=== PATIENT | male | born 1955 | race Caucasian/White ===

== ENCOUNTER 2020-04-14 13:05 | Outpatient (CLI) | payer BC ==
[2020-04-14 14:06] LABS: BASOPHILS # (AUTO) 0.1 X10'3 (0-0.2); BASOPHILS % (AUTO) 0.9 % (0-1); EOSINOPHILS # (AUTO) 0.3 X10'3 (0-0.9); EOSINOPHILS % (AUTO) 4.3 % (0-6); HEMATOCRIT 51.6 % (42.0-52.0); HEMOGLOBIN 17.7 g/dl (14.0-17.9); LYMPHOCYTES # (AUTO) 1.9 X10'3 (1.1-4.8); LYMPHOCYTES % (AUTO) 28.3 % (21-51); MEAN CORPUSCULAR HEMOGLOBIN 33.1 PG (27.0-31.0); MEAN CORPUSCULAR HGB CONC 34.3 g/dL (33.0-36.5); MEAN CORPUSCULAR VOLUME 96.4 FL (78-98); MONOCYTES # (AUTO) 1.1 X10'3 (0-0.9); MONOCYTES % (AUTO) 16.2 % (2-12); NEUTROPHILS # (AUTO) 3.4 X10'3 (1.8-7.7); NEUTROPHILS % (AUTO) 50.3 % (42-75); PLATELET COUNT 181 X10'3 (140-440); RED BLOOD COUNT 5.36 X10'6 (4.70-6.10); RED CELL DISTRIBUTION WIDTH 14.2 % (11.5-14.5); WHITE BLOOD COUNT 6.7 X10'3 (4.5-11.0)
[2020-04-14 14:18] LABS: ALBUMIN 4.1 G/DL (3.4-5.0); ANION GAP 6 (8-16); BLOOD UREA NITROGEN 17 MG/DL (7-18); BUN/CREATININE RATIO 15.6 (5.4-32.0); CALCIUM 9.6 MG/DL (8.5-10.1); CHLORIDE 100 MMOL/L (99-107); CREATININE 1.09 MG/DL (0.60-1.10); GLUCOSE 104 MG/DL (70-104); POTASSIUM 4.2 MMOL/L (3.5-5.1); SODIUM 137 MMOL/L (135-145); TOTAL CARBON DIOXIDE 30.6 MMOL/L (24-32); eGFR 67 ML/MIN
[2020-04-14 14:43] LABS: TOTAL CELLS COUNTED 100
[2020-04-14 14:44] LABS: PLATELET ESTIMATE NORMAL
[2020-04-15] MEDS ORDERED: DIGO-21 PO (10:18)
[2020-04-15] MEDS ORDERED: FURO20TA4 PO (10:18)
[2020-04-15] MEDS ORDERED: LISI-604 PO (10:18)
[2020-04-15] MEDS ORDERED: APIX5TAB3 PO (10:18)
[2020-04-15] MEDS ORDERED: AMIO200T27 PO (10:18)
[2020-04-15] MEDS ORDERED: METO50TA17 PO (10:18)
[2020-04-15] MEDS ORDERED: POTA-82 PO (10:18)
== END 2020-04-14 23:59 | disposition home or self-care (01) ==
LOC: LAB 13:05
DX: I48.4 Atypical atrial flutter (principal); R79.89 Other specified abnormal findings of blood chemistry; R68.89 Other general symptoms and signs
CPT/HCPCS: 80048; 85007; 85025

== ENCOUNTER 2020-04-15 09:19 | Day surgery (SDC) | payer BC ==
[2020-04-15] VITALS (15 sets, daily range): BP systolic 114–145; BP diastolic 58–91
[~2020-04-15] VITALS: Ht 185.4 cm; Wt 111.1 kg
[2020-04-15] MEDS ORDERED: MIDAZolam 1mg/ml 10ml vial IV ONE (09:40)
[2020-04-15] MEDS ORDERED: atropine 0.1mg/ml 10ml syringe IV ONE (09:40)
[2020-04-15] MEDS ORDERED: fentaNYL/PF 50MCG/1 ML 2ML syringe IV ONE (09:40)
[2020-04-15] MEDS ORDERED: normal saline 1000ml 1,000 ML IV SCH (09:40)
[2020-04-15] MEDS ORDERED: FURO20TA4 PO (10:18)
[2020-04-15] MEDS ORDERED: LISI-604 PO (10:18)
[2020-04-15] MEDS ORDERED: POTA-82 PO (10:18)
[2020-04-15] MEDS ORDERED: METO50TA17 PO (10:18)
[2020-04-15] MEDS ORDERED: APIX5TAB3 PO (10:18)
[2020-04-15] MEDS ORDERED: DIGO-21 PO (10:18)
[2020-04-15] MEDS ORDERED: AMIO200T27 PO (10:18)
== END 2020-04-15 13:15 | disposition home or self-care (01) ==
LOC: SSTAY O 09:19
PROVIDERS: ATTEND Internal Medicine Cardiovascular Disease
DX: I48.20 Chronic atrial fibrillation, unspecified (principal); I50.23 Acute on chronic systolic (congestive) heart failure; I43 Cardiomyopathy in diseases classified elsewhere; I20.9 Angina pectoris, unspecified; Z79.899 Other long term (current) drug therapy; Z79.01 Long term (current) use of anticoagulants; Z98.890 Other specified postprocedural states; F17.210 Nicotine dependence, cigarettes, uncomplicated; Z72.89 Other problems related to lifestyle; Z91.030 Bee allergy status
CPT/HCPCS: 71046; 92960; 93005; 99152; 99153; J0461; J2250; J3010; J7030